=== PATIENT | male | born 1935 | race Caucasian/White ===

== ENCOUNTER 2019-02-17 14:11 | Inpatient (IN) | payer MEDICARE, BC ==
[~2019-02-17] VITALS: Ht 185.4 cm; Wt 104.0 kg
--- NOTE | 2019-02-22 09:15 | NUR ---
Pt arrived to room 359 ambulatory with his daughter and admissions staff. Pt oriented to room and call light system. Will complete assessment. Pt is sitting up in the chair and he denies further needs. Call light within reach, will continue to monitor.
[2019-02-22 09:38] LABS: BASO # 0.1 (0.0-0.2); BASO % 1.2 % (0.0-2.0); EOS # 0.5 (0.0-0.7); EOS % 5.8 % (0-4.0); GRAN % 66.4 % (42.2-75.2); HEMATOCRIT 39.9 % (42.0-52.0); HEMOGLOBIN 12.8 g/dl (13.5-18.0); LYMPH # 1.7 (1.2-3.4); LYMPH % 18.4 % (20.0-51.0); MEAN CELL VOLUME 83 fl (80.0-100.0); MEAN CORPUSCULAR HEMOGLOBIN 27 pg (27.0-31.0); MEAN CORPUSCULAR HGB CONC 32 g/dl (33.0-37.0); MEAN PLATELET VOLUME 9.2 fl (7.4-10.4); MONO # 0.7 (0.1-0.6); MONO % 7.8 % (1.7-9.3); PLATELET COUNT 215 K/mm3 (130-400); RED BLOOD COUNT 4.81 M/mm3 (4.20-5.60)
[2019-02-22] MEDS ORDERED: K-DUR20 MEQ PO (09:38)
[2019-02-22 09:44] LABS: INR 1.7 (0.8-3.0); PROTHROMBIN TIME 19.7 SECONDS (9.7-12.8)
[2019-02-22] MEDS ORDERED: ASPIRIN 32325 MG/TAB PO (09:48)
[2019-02-22] MEDS ORDERED: NORVASC 5MG5 MG/TAB PO (09:48)
[2019-02-22] MEDS ORDERED: BENICAR 20MG TA20 MG PO (09:49)
[2019-02-22] MEDS ORDERED: MULTI VITAMINS1 TAB PO (09:49)
[2019-02-22] MEDS ORDERED: HCTZ 25MG TAB25 MG PO (09:49)
[2019-02-22 09:50] LABS: ALBUMIN 4.1 gm/dL (3.5-5.0); BILIRUBIN,TOTAL 0.5 mg/dL (0.0-1.0); CALCIUM 9.4 mg/dL (8.4-10.2); CREATININE, serum 0.93 mg/dL (0.66-1.25); MAGNESIUM 1.9 mg/dL (1.6-2.3); POTASSIUM 3.6 mmol/L (3.4-5.0); TOTAL PROTEIN 7.4 gm/dL (6.4-8.2)
[2019-02-22] MEDS ORDERED: ELIQUIS 5MG PO (09:50)
[2019-02-22] MEDS ORDERED: COREG 6.256.25 MG/TA PO (09:50)
[2019-02-22] MEDS ORDERED: MELAT3MGTAB PO (09:51)
[2019-02-22] MEDS ORDERED: LIPITOR20 MG PO (09:51)
[2019-02-22] MEDS ORDERED: PROZAC 20MG20 MG PO (09:52)
--- NOTE | 2019-02-22 10:30 | NUR ---
Assessment complete. Pt is AXO X3, denies having any pain at this time. Breathing is even and unlabored on room air. Tele on. 20G IV started to his RH that flushes easily and is CDI. Pt's daughter is at the bedside; all questions answered. Pt is sitting up in the bed watching TV at this time and he dneies further needs. Call light within reach, will continue to monitor.
[2019-02-22 11:05] VITALS: BP 123/65; PULSE 60; TEMP 98
[2019-02-22 15:26] VITALS: BP 131/61; PULSE 59; TEMP 97.9
--- NOTE | 2019-02-22 18:24 | NUR ---
Since arriving to the floor the pt has been resting on and off. He has remained free of pain. Pt's daughter has remained at the bedside; all questions answered. He is sitting up in the bed watching TV at this time and he denies further needs. Call light within reach.
[2019-02-22 18:53] VITALS: BP 151/71; PULSE 60; TEMP 97.7
--- NOTE | 2019-02-22 19:25 | NUR ---
Report given to TAYLER Rodriguez.
--- NOTE | 2019-02-22 21:23 | NUR ---
Pt resting in bed watching TV, no C/O pain, shift assessments complete, left Pt call light in reach, bed in lowest position.
[2019-02-23] VITALS (7 sets, daily range): BP systolic 97–136; BP diastolic 38–77; PULSE 56–65; TEMP 97.2–98
--- NOTE | 2019-02-23 05:51 | NUR ---
Pt slept well during the night, no C/O pain requiring medication for relief, VS stable the 0000 and 0400 BPs were in the high 90s to low 100s, the latest EKG strip shows a QTc interval of 540.
[2019-02-23 07:09] LABS: BASO # 0.1 (0.0-0.2); EOS # 0.6 (0.0-0.7); EOS % 6.7 % (0-4.0); GRAN # 4.6 (1.4-6.5); GRAN % 54.5 % (42.2-75.2); HEMATOCRIT 36.4 % (42.0-52.0); HEMOGLOBIN 11.8 g/dl (13.5-18.0); LYMPH # 2.3 (1.2-3.4); LYMPH % 27.5 % (20.0-51.0); MEAN CELL VOLUME 83 fl (80.0-100.0); MEAN CORPUSCULAR HEMOGLOBIN 27 pg (27.0-31.0); MEAN CORPUSCULAR HGB CONC 32 g/dl (33.0-37.0); MEAN PLATELET VOLUME 9.2 fl (7.4-10.4); MONO # 0.8 (0.1-0.6); MONO % 9.9 % (1.7-9.3); PLATELET COUNT 193 K/mm3 (130-400); RED BLOOD COUNT 4.41 M/mm3 (4.20-5.60); REDCELL DISTRIBUTION WIDTH-CV 15.1 % (11.5-14.5)
[2019-02-23 07:12] LABS: CALCIUM 8.8 mg/dL (8.4-10.2); CREATININE, serum 0.85 mg/dL (0.66-1.25); MAGNESIUM 1.8 mg/dL (1.6-2.3); POTASSIUM 3.6 mmol/L (3.4-5.0)
--- NOTE | 2019-02-23 08:30 | NUR ---
Assessment completed, alert/oriented, vital signs stable, denies any chest pain or discomfort, heart RRR/distal pulses are palpable, Qtc>500 this morning and I have notified who said to go ahead and give Sotalol at ordered dose as the patient is AV paced and he thinks he will tolerate just fine, patiet denies feeling SOA/ lung CTA, denies feeling lightheaded or dizzy with ambulation, he is sitting up in bed eating breakfast and deneis other needs at [facility]
--- NOTE | 2019-02-23 09:53 | NUR ---
Initial visit; Aquatic Performer introduced herself to patient and let him know of the availability of spiritual care. He thanked Aquatic Performer for stopping.
--- NOTE | 2019-02-23 15:03 | NUR ---
SW met with patient about discharge planning. Patient lives independently at home with his . Patient's PCP is Dr Felicia Bell and he obtains prescriptions via mail from [facility] or from [facility]. Patient does not use any DME in the home or home health. Patient is unsure if he has a DPOA or not. SW does not anticipate any discharge needs.
--- NOTE | 2019-02-23 20:57 | NUR ---
Initial shift assessment done- denies chest pain/SOB, states feels fine- understands will be NPO after MN tonight. Up in room, steady on feet.
[2019-02-24] VITALS (11 sets, daily range): BP systolic 87–148; BP diastolic 47–76; PULSE 58–73; TEMP 97.3–97.6
--- NOTE | 2019-02-24 05:28 | NUR ---
No requests- Quiet night,, No Chest pain/SOB, Tele on, NP0 for cardioversion
--- NOTE | 2019-02-24 07:00 | NUR ---
assessment completed. pt alert and awake resting in bed. telemetry on. INT site right hand CDI, no redness. reports no pain. pt. NPO status.
[2019-02-24 07:05] LABS: BASO # 0.1 (0.0-0.2); BASO % 1.1 % (0.0-2.0); EOS # 0.6 (0.0-0.7); EOS % 6.6 % (0-4.0); GRAN # 4.9 (1.4-6.5); GRAN % 55.4 % (42.2-75.2); HEMATOCRIT 37.8 % (42.0-52.0); HEMOGLOBIN 12.2 g/dl (13.5-18.0); LYMPH # 2.4 (1.2-3.4); LYMPH % 26.9 % (20.0-51.0); MEAN CELL VOLUME 82 fl (80.0-100.0); MEAN CORPUSCULAR HEMOGLOBIN 27 pg (27.0-31.0); MEAN CORPUSCULAR HGB CONC 32 g/dl (33.0-37.0); MONO # 0.9 (0.1-0.6); MONO % 9.7 % (1.7-9.3); PLATELET COUNT 200 K/mm3 (130-400); REDCELL DISTRIBUTION WIDTH-CV 15.1 % (11.5-14.5)
[2019-02-24 07:09] LABS: CREATININE, serum 0.87 mg/dL (0.66-1.25); MAGNESIUM 1.8 mg/dL (1.6-2.3); POTASSIUM 3.4 mmol/L (3.4-5.0)
--- NOTE | 2019-02-24 08:00 | NUR ---
Patient in bed resting. Alert and oriented x3. Shift assessment complete. Student nurse in room. Patient denies pain or further needs at this time.
--- NOTE | 2019-02-24 08:02 | NUR ---
Paged cardiology nurse, patients qtc >500.
--- NOTE | 2019-02-24 08:53 | NUR ---
Paged Dr. Graves
--- NOTE | 2019-02-24 09:30 | NUR ---
Pt. taken down for cardioversion.
--- NOTE | 2019-02-24 10:10 | NUR ---
ALL SEDATION MEDIATIONS GIVEN WITH VERBAL ORDER FROM MD LIU, SEE MERGE FOR ADMIN TIMES. SEE MERGE FOR RASS AND MODERATE SEDATION ASSESSMENTS DURING AND POST PROCEDURE.
[2019-02-24] MEDS ORDERED: BETAPACE 80MG80 MG PO (10:21)
--- NOTE | 2019-02-24 11:44 | NUR ---
no change w/assessment. tolerated procedure well, reports no pain.
--- NOTE | 2019-02-24 11:54 | NUR ---
Per Dr. Nanette colmenares to change patient diet to heart healthy.
--- NOTE | 2019-02-24 14:39 | NUR ---
Discharge instructions give. Patient educated on when to call physician and to keep follow up appointment with cardiology. Denies pain or further needs at this time. INT to right hand discontinued. Catheter tip intact. Denies pain or further needs at this time. Son in room. Patient will call when ready to leave.
--- NOTE | 2019-02-24 14:58 | NUR ---
Patient out with medical staff by wheelchair.
== END 2019-02-24 15:02 | disposition home or self-care (01) | DRG 310 ==
LOC: MEDICAL 02-22 08:55
PROVIDERS: Nurse Practitioner; ADMIT Internal Medicine Cardiovascular Disease
PROC: 5A2204Z Restoration of Cardiac Rhythm, Single (ICD-10-PCS; principal; 2019-02-24)
DX: I48.91 Unspecified atrial fibrillation (principal); Z95.0 Presence of cardiac pacemaker; I25.10 Atherosclerotic heart disease of native coronary artery without angina pectoris; Z95.1 Presence of aortocoronary bypass graft; I10 Essential (primary) hypertension; E78.5 Hyperlipidemia, unspecified; E11.9 Type 2 diabetes mellitus without complications; Z86.73 Personal history of transient ischemic attack (TIA), and cerebral infarction without residual deficits; Z85.46 Personal history of malignant neoplasm of prostate; Z87.891 Personal history of nicotine dependence; I73.9 Peripheral vascular disease, unspecified
CPT/HCPCS: J2250; J3010